=== PATIENT | male | born 1940 | race Caucasian/White ===

== ENCOUNTER 2016-04-28 11:01 | Inpatient (IN) | payer MEDICARE, OTHER ==
--- OUTSIDE RECORDS SUMMARY | 2016-04-28 12:22 | XMS REPORT | Continuity of Care Document ---
:1940 Author Organization [facility] ([facility]) Address [address] [place] [address] Phone [phone] Care Team Providers Name Role Phone Kirstin To Primary Care Provider [phone] Source Comments This disclosure is being made pursuant to the Care Everywhere program, applicable federal and state laws, and may not contain all informaitonavailable regarding this patient.[facility] ([facility]) Active Allergies and Adverse Reactions Allergen Noted Date Severity Reactions Comments Non-Med Tape Pruritus,Rash Hyaftup-Plf-Piy Reductase OTHER Joint pain, muscle pain Inhibitors Current Medications Prescription Sig. Disp. Refills Start Date End Date Status ACETAMINOPHEN/DP-HYDR Take 2 Tabs Active AM HCL (TYLENOL PM by mouth at EXTRA STRENGTH PO) bedtime. MULTIVITAMINS Take 1 Tab by Active (MULTI-VITAMIN PO) mouth daily. aspirin 325 mg tablet Take 325 mg Active by mouth daily. levothyroxine 75 mcg Take 75 mcg Active tablet by mouth daily. omega-3 fatty acids Take 2,000 mg Active 1,000 mg capsule by mouth daily. METHYLCELLULOSE Take 1 Tab by Active (FIBER THERAPY PO) mouth 2 times daily. metoPROLol succinate Take 25 mg by Active 25 mg XL tablet mouth daily ferrous sulfate 325 Take 65 mg by Active mg (65 mg iron) XR mouth daily capsule potassium chloride 10 Take 10 mEq Active mEq XR tablet by mouth daily gabapentin 300 mg Take 1 30 capsule 0 03/09/2015 Active capsule capsule (300 mg total) by mouth at bedtime omeprazole 20 mg Take 20 mg by Active enteric coated mouth 2 times capsule daily. VIT C/MORGAN Take by mouth Active AC/LUT/COPPER/ZNOX 2 times (PRESERVISION LUTEIN daily. PO) isosorbide Take 1 tablet 90 tablet 3 07/07/2015 Active mononitrate 60 mg CR (60 mg total) tablet by mouth every morning. cabergoline 0.5 mg Take 0.5 tab 20 tablet 3 07/08/2015 Active tablet on Sunday and 1 tab on Sunday. metFORMIN 500 mg XR Take 500 mg Active tablet by mouth every evening with dinner. montelukast 10 mg Take 10 mg by Active tablet mouth every evening. furosemide 20 mg Take 2 180 tablet 3 01/20/2016 Active tablet tablets (40 mg total) by mouth daily. rosuvastatin 5 mg Take 0.5 90 tablet 0 01/20/2016 Active tablet tablets (2.5 mg total) by mouth every 48 hours. lisinopril 5 mg Take 1 tablet 90 tablet 4 04/26/2016 Active tablet (5 mg total) by mouth daily. ezetimibe (ZETIA) 10 Take 1 tablet 90 tablet 0 01/20/2016 mg tablet (10 mg total) 7 by mouth daily. lisinopril 5 mg Take 1 tablet 90 tablet 0 01/20/2016 Discontinued tablet (5 mg total) 7 by mouth daily. 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 06/08/2006 Resolved Problems Problem Noted Date Resolved Date Undiagnosed cardiac murmurs 09/21/2003 10/13/2014 Most Recent Encounters Date Type Specialty Providers Description 04/26/2016 Office Visit [facility], Dx: Cardiomyopathy (Primary Dx) 02/16/2016 Office Visit [facility] Dx: Viral cardiomyopathy (Primary Dx) Immunizations Name Dates Previously Given Next Due Influenza 12/10/2014 Influenza, unspecified 12/10/2012,12/24/2008,12/25/2007,12/29/2006 Pneumococcal, unspecified 02/09/2013 Zoster, live (Zostavax) 03/12/2010 Social History Tobacco Use Types Packs/Day Years Used Date Current Some Day Smoker Cigars 25 Smokeless Tobacco: Never Used Tobacco Cessation:Ready to Quit: No Comments:Pt smokes about 6 cigars daily Alcohol Use Drinks/Week oz/Week Comments No Last Filed Vital Signs Vital Sign Reading Time Taken Blood Pressure 120/74 04/26/2016 10:20 AM THERAPY TECHNICIAN Pulse 80 04/26/2016 10:20 AM THERAPY TECHNICIAN Temperature 35.7 C (96.3 F) 01/20/2016 8:00 AM THERAPY TECHNICIAN Respiratory Rate 18 01/20/2016 8:00 AM THERAPY TECHNICIAN Height 1.778 m (5' 10") 04/26/2016 10:20 AM THERAPY TECHNICIAN Weight 124.739 kg (275 lb) 04/26/2016 10:20 AM THERAPY TECHNICIAN Body Mass Index 39.46 04/26/2016 10:20 AM THERAPY TECHNICIAN Oxygen Saturation 93% 01/20/2016 8:00 AM THERAPY TECHNICIAN Plan of Care Date Type Specialty Providers Description 08/30/2016 Appointment [facility], Chief Comp: Patient MD Reported Reason For [address] [place] [address] [phone] (Fax) Health Maintenance Due Date Last Done Comments Hepatitis B Vaccine (1 of 3 - 1940 Primary Series) Tdap Vaccine 1951 DIABETIC: Microalbumin 1960 Td Vaccine 1958 Colonoscopy 07/08/1992 Pneumococcal Vaccine (1 of 2 07/10/2007 - PCV13) DIABETIC: Hemoglobin A1C 12/19/2012 06/19/2012, 06/20/2011, 07/20/2009 Prostate Cancer Screening 06/24/2014 06/24/2013, Additional history exists 06/19/2012, 06/20/2011 DIABETIC: Foot Exam 05/18/2015 DIABETIC: Retinal Eye Exam 05/18/2015 Influenza Vaccine: Seasonal 10/11/2015 12/10/2014, Additional history exists (#1) 12/10/2012, 12/24/2008 DIABETIC: Cholesterol 01/17/2017 01/18/2016, Additional history exists 06/19/2012, 07/20/2009 Diabetic: Hdl 01/17/2017 01/18/2016, Additional history exists 06/19/2012, 07/20/2009 Diabetic: Ldl 01/17/2017 01/18/2016, Additional history exists 06/19/2012, 07/20/2009 DIABETIC: Triglycerides 01/17/2017 01/18/2016, Additional history exists 06/19/2012, 07/20/2009 Zoster Vaccine Completed 03/12/2010 Results from Last 3 Months Not on file
[2016-04-28 12:40] LABS: Hematocrit 39.7 % (42.0-52.0); Hemoglobin 13.7 gm/dL (13.5-18.0); Mean Cell Volume 92.5 fl (78-100); Mean Corpuscular Hemoglobin 31.9 pg (27-31); Mean Corpuscular Hgb Conc 34.5 g/dl (32-36); Mean Platelet Volume 10.5 fl (6.0-9.5); Neutrophil # 11.4 K/mm3 (1.3-6.0); Neutrophil % 81.3 % (42-75.0); Platelet Count 151 K/mm3 (150-450); Red Blood Count 4.29 M/mm3 (4.7-6.0); Red Cell Distribution Width 13.5 % (11.5-14.0); White Blood Count 14.1 K/mm3 (4.0-10.5)
[2016-04-28] MEDS ORDERED: ACETAMINOPHEN 500 MG TABLET PO ONE (12:45)
[2016-04-28 12:55] LABS: Urine Bilirubin Negative (NEGATIVE); Urine Blood Negative /ul (NEGATIVE); Urine Ketone Negative (NEGATIVE); Urine Nitrite Negative (NEGATIVE); Urine Protein Negative (NEGATIVE); Urine Urobilinogen Normal (NORMAL)
[2016-04-28 12:55] LABS: Albumin * 3.5 gm/dl (3.4-5.0); Anion Gap 13.9 mmol/L (6.8-13.8); BUN/Creatinine Ratio 13.3 (9.0-21.6); Ca. Corrected For Albumin 9.8 mg/dL (8.4-10.2); Calcium * 9.7 mg/dL (7.9-10.9); Carbon Dioxide 25.4 mmol/L (24-32.6); Potassium 4.3 mmol/L (3.4-4.6); Total Protein 7.9 gm/dL (6.2-8.2)
[2016-04-28 13:04] LABS: Urine Appearance Clear; Urine Color Dark Yellow
[2016-04-28 13:05] LABS: Urine Bacteria 2+; Urine RBC None Seen /hpf (0-5); Urine WBC 0-5 /hpf (0-5)
--- NOTE | 2016-04-28 13:28 | ERNOTE ---
Medical Problem HPI - Narrative Date of Service: 04/28/16 - General Chief Complaint: Flu Symptoms Time Seen by Provider: 04/28/16 12:11 Source: patient, family, RN notes reviewed, old records Exam Limitations: no limitations - Immun/Allergies/Home Medications Immunizations: IMMUNIZATION HX Immunizations Up to Date Yes History of Influenza Vaccine Yes Hx Pneumococcal Vaccination Yes Allergies/Adverse Reactions: Allergies adhesive Allergy (Mild, Verified 04/28/16 11:07) blisters, rash Irgjemw-Vuo-Cdb Reductase Inhibitor Adverse Reaction (Mild, Verified 01/17/16 16 :31) Muscle Pain Home Medications: HOME MEDICATIONS Omeprazole [Prilosec] 20 mg PO BID 02/03/13 [Last Taken Unknown] Levothyroxine Sodium [Levoxyl] 75 mcg PO DAILY 11/28/13 [Last Taken Unknown] metFORMIN HCL [Glucophage Xr] 500 mg PO DAILY 11/28/13 [Last Taken Unknown] Furosemide [Lasix] 20 mg PO BID 02/25/15 [Last Taken Unknown] Metoprolol Succinate [Toprol Xl] 25 mg PO DAILY 02/25/15 [Last Taken Unknown] Potassium Chloride [Klor-Con M10] 10 meq PO DAILY 02/25/15 [Last Taken Unknown] Gabapentin 300 mg PO BID 04/28/16 [Last Taken Unknown] Lisinopril 04/28/16 [Last Taken Unknown] Montelukast Sodium [Singulair] 10 mg PO DAILY 04/28/16 [Last Taken Unknown] - History of Present History Narrative: 75 y/o male to ED with by private car. He began running a fever and not feeling well yesterday. His only specific complaint is a sore throat, but he reports that it is mild. He had an echocardiogram 2 days ago and reports feeling fine that day. He denies sick contacts. He took Tylenol at 0600 and reports it made him feel worse. He denies nausea, vomiting, diarrhea and abdominal pain but reports only eating some toast since yesterday morning. He states his stomach is "upset." Date (Duration): 04/28/16 Review of Systems - Review of Systems Constitutional: Present: fever, chills, fatigue, malaise. Absent: recent illness EYE: Present: no symptoms reported ENT: Present: sore throat. Absent: ear pain, nose congestion, nasal drainage Respiratory: Absent: shortness of breath, cough, wheezing Cardiology: Absent: chest pain, palpitations, edema Gastrointestinal/Abdominal: Present: eating less, drinking less. Absent: nausea , vomiting, diarrhea, constipation, abdominal pain Genitourinary: Absent: frequency, dysuria, hematuria Musculoskeletal: Present: muscle pain, joint pain Skin: Absent: rash, lesions Neurological: Present: headache, tingling. Absent: dizziness/light-headedness, weakness, numbness Endocrine: Present: no symptoms reported Hematologic/Lymphatic: Absent: easy bruising, easy bleeding Psych: Present: no symptoms reported - Patient's Past Medical History Patient History - Medical: Diabetes Type 2, GERD, Hypothyroidism, Obesity Patient History - Cardiac/Respiratory: Hypertension, Hyperlipidemia Patient History - Cancer: No Hx of Cancer Patient History - Surgical Procedures: Appendectomy, Colon Resection, Colonoscopy, Coronary Bypass Surgery, Cardiac stent, EGD, T & A, Other - Cardioversion, pituitary tumor Patient History - Other: None - Social History Living Situations: spouse Abuse History: No History of abuse Psych History: No pertinent hx Smoking Status: Current some day smoker Have you smoked in the past 12 months: Yes Do you dip or chew tobacco: No Patient requests Smoking Cessation Consult: No Initiate information on Smoking Cessation: No Alcohol Use: rarely Drug Use: none - Immunizations Immunizations Up to Date: Yes Hx Pneumococcal Vaccination: Yes History of Influenza Vaccine: Yes Physical Exam - Physical Exam General Appearance: Present: wd/wn, alert, obese, other - appropriately dressed and groomed, appears to not feel well Eye Exam: Normal inspection: bilateral Ears, Nose, Throat: Present: hearing grossly normal, nasal congestion, normal pharynx. Absent: sinus pain/drainage, pharyngeal erythema, pharyngeal swelling Neck: Present: normal inspection, nontender, supple. Absent: lymphadenopathy (R ), lymphadenopathy (L) Respiratory: Present: no respiratory distress, normal breath sounds, no accessory muscle use, lungs clear Cardiovascular/Chest: Present: regular rate, rhythm, no murmur, normal peripheral pulses Gastrointestinal/Abdominal: Present: normal bowel sounds, nontender, soft, distended - obese Extremity Exam: Present: normal inspection, non-tender, no edema Neurological Exam: Present: alert, oriented, normal mood/affect, no motor/ sensory deficits Skin Exam: Present: normal color, warm/dry ED Progress - Results and Orders Patient's Lab Results:: I have reviewed the patient's lab results. - Vital Signs Patient's Vital Signs:: I have reviewed the patient's vital signs. Vital Signs: Vital Signs 04/28/16 11:12 Temperature 38.3 C H Pulse Rate 84 Respiratory 18 Rate Blood Pressure 109/57 O2 Sat by Pulse 94 Oximetry - X-Ray X-Ray #1 X-Ray: chest Interpretation: Reviewed by me X-ray Comments: Comparison: February 16, 2016 Technique: Chest PA Lateral * Findings: Reidentified cardiomegaly. Reidentified prior median sternotomy change. Chronic granulomatous changes also identified. There is prominence of the pulmonary arterial system, correlate for either central vascular engorgement or pulmonary arterial hypertension. No focal consolidative process. No pneumothorax. No effusions. Osseous structures demonstrate degenerative change. IMPRESSION: 1. Cardiomegaly and central vascular prominence. Findings can be seen in early CHF. These findings are stable from prior exam Electronically signed by Yahir Griffin M.D.. - CT/Ultrasound CT/Ultrasound Narrative: Technique: CT Head W/O Contrast * Findings: There is no acute intracranial hemorrhage, midline shift or mass effect detected. No hydrocephalus. Cisterns are unremarkable. Chronic atrophy and chronic microvascular ischemic disease change of the white matter reidentified No depressed calvarial fractures. Cyst versus polyp right maxillary sinus there is partial opacification of the sphenoid sinus. Mastoid air cells are well pneumatized. Impression: No acute intracranial process detected. Electronically signed by Yahir Griffin M.D.. - Progress/Reassessment Chief Complaint: Flu Symptoms Progress:: Improved Plan - Plan Plan: Patient reports feeling a lot better after fever has improved and IVF have been started. Patient had a brief episode of "not being able to get his words out" according to the . This had resolved by the time I went back into the room. A head CT was obtained and was normal. He apparently had a similar episode last fall when he was febrile and transferred to [facility]. The specific cause of that illness was not determined. Patient has elevated WBC and lactic acid of 2.9 with fever, chest xray is unremarkable. 2+ bacteria present in urine - infection source is likely prostatitis despite the patient having no urinary symptoms.Sepsis fluid bolus initiated. Dr. Ruggiero contacted for admission at [address] To (PCP) is unavailable. Will admit to acute and order IV Cipro. Patient in agreement with plan. Departure - Departure Clinical Impression: Prostatitis, acute Sepsis Qualifiers: Sepsis type: sepsis due to unspecified organism Qualified Code(s): A41.9 - Sepsis, unspecified organism Disposition: [facility] Condition: Fair
[2016-04-28] MEDS: NORMAL SALINE 1,000 ML IV SCH ×4 (14:00→17:52)
--- OUTSIDE RECORDS SUMMARY | 2016-04-28 14:49 | XMS REPORT | Continuity of Care Document ---
:1940 Author Organization [facility] ([facility]) Address [address] [place] [address] Phone [phone] Care Team Providers Name Role Phone Kirstin To Primary Care Provider [phone] Source Comments This disclosure is being made pursuant to the Care Everywhere program, applicable federal and state laws, and may not contain all informaitonavailable regarding this patient.[facility] ([facility]) Active Allergies and Adverse Reactions Allergen Noted Date Severity Reactions Comments Non-Med Tape Pruritus,Rash Eoghtmn-Nos-Dmi Reductase OTHER Joint pain, muscle pain Inhibitors [...] ASA due to GI bleeds 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 Overview: HINKLE-LAD, VG-OM1-OM3, VG-RPL with [...] Taken Blood Pressure 120/74 04/26/2016 10:20 AM DOCTOR OF PODIATRIC MEDICINE Pulse 80 04/26/2016 10:20 AM DOCTOR OF PODIATRIC MEDICINE Temperature 35.7 C (96.3 F) 01/20/2016 8:00 AM DOCTOR OF PODIATRIC MEDICINE Respiratory Rate 18 01/20/2016 8:00 AM DOCTOR OF PODIATRIC MEDICINE Height 1.778 m (5' 10") 04/26/2016 10:20 AM DOCTOR OF PODIATRIC MEDICINE Weight 124.739 kg (275 lb) 04/26/2016 10:20 AM DOCTOR OF PODIATRIC MEDICINE Body Mass Index 39.46 04/26/2016 10:20 AM DOCTOR OF PODIATRIC MEDICINE Oxygen Saturation 93% 01/20/2016 8:00 AM DOCTOR OF PODIATRIC MEDICINE Plan of Care Date Type Specialty Providers Description 08/30/2016 Appointment [facility], Chief Comp: Patient MD Reported Reason For [address] [place] [address] [phone] (Fax) Health Maintenance Due Date Last Done [...]
[2016-04-28] MEDS: CIPROFLOXACIN LACTATE/D5W 400 MG in Premix Bag 1 BAG IV SCH (15:42)
--- NOTE | 2016-04-28 16:48 | HP ---
Chief Complaint - Chief Complaint Date of Service: 04/28/16 Time of Service: 16:31 Chief Complaint: Fevers, neurologic disruption. History of Present Illness: Pt. is a patient of Dr. To, who has not been feeling well for a couple days , similar to what happened back in Jan 2016, felt antsy if sitting or lying down , Fevers, BROWN and a neurologic disruption that mad him have word finding issues. He denies dysuria, frequency, hesitancy, stiff neck, sore throat or sinus pain , N/V or diarrhea or abdominal pain, vision changes or cough. He did have some SOB, but he always has this. Work-up in the ER produced no definite findings other that possible urinary infection and given his issues with sitting or lying down I believe this is prostate related. He did have WBC of 14k, fever to 39 and Lactic acid of 2.9, all findings c/w sepsis. He received fluid boluses in the ER and was continued on the floor. When I saw him he states he was already feeling better. He reports history of CHF from when he was at [facility] in January, was started on lasix bid, but recent visit with Dr. Haque a few days ago, showed echo was wnl , disputing this dx. - Patient's Past Medical History Patient History - Medical: Diabetes Type 2, GERD, Hypothyroidism, Obesity Patient History - Cardiac/Respiratory: Hypertension, Hyperlipidemia Patient History - Cancer: No Hx of Cancer Patient History - Surgical Procedures: Appendectomy, Colon Resection, Colonoscopy, Coronary Bypass Surgery, Cardiac stent, EGD, T & A, Other Patient History - Other: None - Family History Mother Family History - Medical: , Diabetes Type 2 Family History - Cardiac/Respiratory: CVA/Stroke Sister Family History - Medical: , Diabetes Type 2 Insulin Dependent Father Family History - Medical: Family History - Cancer: Lung Brother Family History - Cardiac/Respiratory: Coronary Heart Disease - Social History Living Situations: home Abuse History: No History of abuse Psych History: No pertinent hx Smoking Status: Current some day smoker Have you smoked in the past 12 months: Yes Do you dip or chew tobacco: No Patient requests Smoking Cessation Consult: No Initiate information on Smoking Cessation: No Alcohol Use: rarely Drug Use: none - Immunizations Immunizations Up to Date: Yes Hx Pneumococcal Vaccination: Yes History of Influenza Vaccine: Yes Review Of Systems (GEN) - Review of Systems Generalized/Overall Review: Present: Weakness, Fever, Fatigue EENTM: Present: Other - Headache. Absent: Eye Pain, Double Vision, Nose Pain, Throat Pain Respiratory: Present: Shortness of Breath. Absent: Cough Cardiac: Absent: Chest Pain, Palpitations Abdominal: Present: No Symptoms Reported Genitourinary: Present: No Symptoms Reported Musculoskeletal: Present: No Symptoms Reported Neurological: Present: Headache, Other - memory issues - transient.. Absent: Numbness Skin: Present: No Symptoms Reported Endocrine: Present: No Symptoms Reported Immunizations: IMMUNIZATION HX Immunizations Up to Date Yes History of Influenza Vaccine Yes Hx Pneumococcal Vaccination Yes Allergies/Adverse Reactions: Allergies Allergy/AdvReac Type Severity Reaction Status Date / Time adhesive Allergy Mild blisters, Verified 04/28/16 15:43 rash [id number] Reductase AdvReac Mild Muscle Pain Verified 04/28/16 15:43 Inhibitor Home Medications: HOME MEDICATIONS Omeprazole [Prilosec] 20 mg PO BID 02/03/13 [Last Taken Unknown] Levothyroxine Sodium [Levoxyl] 75 mcg PO DAILY 11/28/13 [Last Taken Unknown] metFORMIN HCL [Glucophage Xr] 500 mg PO DAILY 11/28/13 [Last Taken Unknown] Furosemide [Lasix] 20 mg PO BID 02/25/15 [Last Taken Unknown] Metoprolol Succinate [Toprol Xl] 25 mg PO DAILY 02/25/15 [Last Taken Unknown] Potassium Chloride [Klor-Con M10] 10 meq PO DAILY 02/25/15 [Last Taken Unknown] Gabapentin 300 mg PO BID 04/28/16 [Last Taken Unknown] Lisinopril 04/28/16 [Last Taken Unknown] Montelukast Sodium [Singulair] 10 mg PO DAILY 04/28/16 [Last Taken Unknown] Exam - Exam Vital Signs: Vital Signs - Last Taken Temp 37.9 C H 04/28/16 15:30 Pulse 75 04/28/16 15:30 Resp 18 04/28/16 15:30 BP 100/48 04/28/16 15:30 Pulse Ox 94 04/28/16 15:30 Constitutional: Present: Alert, Oriented x3, Cooperative, No distress ENT Exam: Present: hearing grossly normal Eye Exam: bilateral eye: normal inspection, PERRL, EOMI, abnormal EOM Neck: Present: supple Respiratory: Present: no respiratory distress, no accessory muscle use, wheezing , expiration (prolonged) Cardiovascular/Chest: Present: regular rate, rhythm, systolic murmur Abdomen: Present: Normal bowel sounds, soft, nontender, nondistended, no rebound tenderness, no hepatospenomegaly, obese /Rectal: Present: Exam deferred Extremity: Present: no calf tenderness, lower extremity edema Skin Exam: Present: normal color Neurologic: Present: normal cerebellar test, normal mood/affect, oriented x 3 Appearance: Present: appropriate appearance, appropriate insight, neat Eye contact: Present: cooperative, good eye contact, normal speech Thoughts: Present: normal thought pattern, no apparent hallucination Diagnostic Studies: Abnormal Lab Results 04/28/16 04/28/16 Range/Units Unknown Unknown Lactic Acid, Venous 2.9 H* (0.4-2.0) mmol/L Ur Leukocyte Esterase 25 H (NEGATIVE) /ul Urine Bacteria 2+ H (NONE) Hyaline Casts 5-10 H (NONE) /LPF Laboratory Results WBC 14.1 K/mm3 (4.0-10.5) H 04/28/16 12:35 RBC 4.29 M/mm3 (4.7-6.0) L 04/28/16 12:35 Hgb 13.7 gm/dL (13.5-18.0) 04/28/16 12:35 Hct 39.7 % (42.0-52.0) L 04/28/16 12:35 MCV 92.5 fl (78-100) 04/28/16 12:35 MCH 31.9 pg (27-31) H 04/28/16 12:35 MCHC 34.5 g/dl (32-36) 04/28/16 12:35 RDW 13.5 % (11.5-14.0) 04/28/16 12:35 Plt Count 151 K/mm3 (150-450) 04/28/16 12:35 MPV 10.5 fl (6.0-9.5) H 04/28/16 12:35 Immature Gran % (Auto) 0.40 % (0.001-0.429) 04/28/16 12:35 Immature Gran # (Auto) 0.06 K/mm3 (0.000-0.0310) H 04/28/16 12:35 Neutrophils % 81.3 % (42-75.0) H 04/28/16 12:35 Neutrophils % (Manual) Cancelled 04/28/16 12:35 Band Neuts % (Manual) Cancelled 04/28/16 12:35 Lymphocytes % 7.0 % (20-51) L 04/28/16 12:35 Lymphocytes % (Manual) Cancelled 04/28/16 12:35 Monocytes % 11.1 % (0.0-9) H 04/28/16 12:35 Monocytes % (Manual) Cancelled 04/28/16 12:35 Eosinophils % 0.1 % (0.0-3.0) 04/28/16 12:35 Eosinophils % (Manual) Cancelled 04/28/16 12:35 Basophils % 0.1 % (0.0-1.0) 04/28/16 12:35 Basophils % (Manual) Cancelled 04/28/16 12:35 Nucleated RBC % 0.0 k/mm3 (0-1) 04/28/16 12:35 Immature Granulocytes Cancelled 04/28/16 12:35 Neutrophils # 11.4 K/mm3 (1.3-6.0) H 04/28/16 12:35 Neutrophils # (Manual) Cancelled 04/28/16 12:35 Lymphocytes # 1.0 k/mm3 (1.5-3.5) L 04/28/16 12:35 Lymphocytes # (Manual) Cancelled 04/28/16 12:35 Monocytes # 1.6 k/mm3 (0.0-1.0) H 04/28/16 12:35 Monocytes # (Manual) Cancelled 04/28/16 12:35 Eosinophils # 0.0 k/mm3 (0.0-0.7) 04/28/16 12:35 Eosinophils # (Manual) Cancelled 04/28/16 12:35 Basophils # (Manual) Cancelled 04/28/16 12:35 Absolute Basophils 0.0 k/mm3 (0.0-0.1) 04/28/16 12:35 Nucleated RBCs Cancelled 04/28/16 12:35 Differential Comment Cancelled 04/28/16 12:35 Hypersegmented Polys Cancelled 04/28/16 12:35 Atypic/Reactive Lymphs Cancelled 04/28/16 12:35 Other Cell Type Cancelled 04/28/16 12:35 Toxic Granulation Cancelled 04/28/16 12:35 Toxic Vacuolation Cancelled 04/28/16 12:35 Dohle Bodies Cancelled 04/28/16 12:35 Platelet Estimate Cancelled 04/28/16 12:35 Giant Platelets Cancelled 04/28/16 12:35 RBC Morphology Cancelled 04/28/16 12:35 Polychromasia Cancelled 04/28/16 12:35 Hypochromasia Cancelled 04/28/16 12:35 Poikilocytosis Cancelled 04/28/16 12:35 Basophilic Stippling Cancelled 04/28/16 12:35 Anisocytosis Cancelled 04/28/16 12:35 Microcytosis Cancelled 04/28/16 12:35 Macrocytosis Cancelled 04/28/16 12:35 Spherocytes Cancelled 04/28/16 12:35 Sickle Cells Cancelled 04/28/16 12:35 Target Cells Cancelled 04/28/16 12:35 Tear Drop Cells Cancelled 04/28/16 12:35 Ovalocytes Cancelled 04/28/16 12:35 Tafoya-Mcallen Bodies Cancelled 04/28/16 12:35 Elliptocytes Cancelled 04/28/16 12:35 Rouleaux Cancelled 04/28/16 12:35 Schistocytes Cancelled 04/28/16 12:35 Morphology Comment Cancelled 04/28/16 12:35 Sodium 134 mmol/L (132-142) 04/28/16 12:35 Plasma Sodium 135 mmol/L (130-142) 04/28/16 12:35 Potassium 4.3 mmol/L (3.4-4.6) 04/28/16 12:35 Chloride 99 mmol/L (97-106) 04/28/16 12:35 Carbon Dioxide 25.4 mmol/L (24-32.6) 04/28/16 12:35 Anion Gap 13.9 mmol/L (6.8-13.8) H 04/28/16 12:35 BUN 16 mg/dL (6-23) 04/28/16 12:35 Creatinine 1.20 mg/dL (0.4-1.4) 04/28/16 12:35 Est GFR (Non-Af Amer) 63 mL/min (60-130) 04/28/16 12:35 BUN/Creatinine Ratio 13.3 (9.0-21.6) 04/28/16 12:35 Random Glucose 181 mg/dL (70-110) H 04/28/16 12:35 Lactic Acid, Venous 2.9 mmol/L (0.4-2.0) H* 04/28/16 Unknown Calcium 9.7 mg/dL (7.9-10.9) 04/28/16 12:35 Calcium Adj for Albumin 9.8 mg/dL (8.4-10.2) 04/28/16 12:35 Total Bilirubin 1.0 mg/dL (0.0-1.1) 04/28/16 12:35 AST 40 U/L (0-48) 04/28/16 12:35 ALT 61 U/L (19-67) 04/28/16 12:35 Alkaline Phosphatase 101 U/L (50-170) 04/28/16 12:35 Total Protein 7.9 gm/dL (6.2-8.2) 04/28/16 12:35 Albumin 3.5 gm/dl (3.4-5.0) 04/28/16 12:35 Urine Color Dark yellow 04/28/16 Unknown Urine Appearance Clear 04/28/16 Unknown Urine pH 6.0 pH (5.0-7.0) 04/28/16 Unknown Ur Specific [place] 1.020 SP.GR. (1.005-1.030) 04/28/16 Unknown Urine Protein Negative mg/dL (NEGATIVE) 04/28/16 Unknown Urine Glucose (UA) Negative mg/dL (NEGATIVE) 04/28/16 Unknown Urine Ketones Negative mg/dL (NEGATIVE) 04/28/16 Unknown Urine Blood Negative /ul (NEGATIVE) 04/28/16 Unknown Urine Nitrate Negative (NEGATIVE) 04/28/16 Unknown Urine Bilirubin Negative mg/dl (NEGATIVE) 04/28/16 Unknown Urine Urobilinogen Normal EU/dl (NORMAL) 04/28/16 Unknown Ur Leukocyte Esterase 25 /ul (NEGATIVE) H 04/28/16 Unknown Urine RBC None seen /hpf (0-5) 04/28/16 Unknown Urine WBC 0-5 /hpf (0-5) 04/28/16 Unknown Ur Epithelial Cells Trace /hpf (0-5) 04/28/16 Unknown Urine Bacteria 2+ (NONE) H 04/28/16 Unknown Hyaline Casts 5-10 /LPF (NONE) H 04/28/16 Unknown Urine Culture Comments Culture to follow 04/28/16 Unknown Influenza Type A Ag Negative (NEGATIVE) 04/28/16 11:22 Influenza Type B Ag Negative (NEGATIVE) 04/28/16 11:22 Group A Strep Rapid Negative (NEGATIVE) 04/28/16 11:00 Assessment/Plan - Assessment/Plan (1) Neurologic abnormality Assessment: due to sepsis most likely cause. could be encephalitis given fever and sx. if sx persist consider MRI of the brain. Problem: Acute (2) Wheezing Assessment: will do some nebs while awake. might have some underlying asthma, which may be causing his intermittant afib. Problem: Acute (3) Prostatitis, acute Assessment: most likely source of infection given UA findings, sepsis findings on lab values and the restlessness that he reports. Problem: Acute (4) Sepsis Assessment: blood culture and urine culture pending. will do cipro as it has good coverage for prostate. will do fluids boluses and then reduce fluids to 126ml/hr until lactic acidosis is resolved or until the am which ever is later. Problem: Acute Qualifiers: Sepsis type: sepsis due to unspecified organism Qualified Code(s): A41.9 - Sepsis, unspecified organism (5) Atrial fibrillation, chronic Assessment: follow for now. no interventions needed at this time as he is in NSR. Problem: Acute (6) Diabetes Assessment: do SSI and consistent carb diet. continue home regimen. accu checks QAC and HS Problem: Acute Qualifiers: Diabetes mellitus type: type 2 Diabetes mellitus complication status: without complication Diabetes mellitus alf insulin use: without roasterman use Qualified Code(s): E11.9 - Type 2 diabetes mellitus without complications (7) Discharge planning issues Assessment: if he responds well to abx and labs are better in the am, the anticipate him going home soon on oral abx. Problem: Acute
[2016-04-28] MEDS ORDERED: ALBUTEROL SULFATE 2.5 MG/0.5 ML VIAL.NEB IH PRN (16:49)
[2016-04-28] MEDS: INSULIN REGULAR, HUMAN 100 UNITS/ML VIAL SC SCH ×2 (17:55→20:32)
[2016-04-28] MEDS: ACETAMINOPHEN 500 MG TABLET PO PRN (20:24)
[2016-04-28] MEDS: PANTOPRAZOLE SODIUM 20 MG TABLET.DR PO SCH (20:25)
[2016-04-28] MEDS: FUROSEMIDE 20 MG TABLET PO SCH (20:25)
[2016-04-28] MEDS: GABAPENTIN 300 MG CAPSULE PO SCH (20:25)
[2016-04-28] MEDS: NORMAL SALINE 1,000 ML IV PRN (20:28)
[2016-04-28] MEDS ORDERED: MONTELUKAST SODIUM 10 MG TABLET PO SCH (21:00)
[2016-04-29] MEDS: ACETAMINOPHEN 500 MG TABLET PO PRN ×2 (03:17→12:18)
[2016-04-29] MEDS: NORMAL SALINE 1,000 ML IV PRN (03:18)
[2016-04-29] MEDS: CIPROFLOXACIN LACTATE/D5W 400 MG in Premix Bag 1 BAG IV SCH (03:18)
[2016-04-29 06:22] LABS: Hematocrit 36.1 % (42.0-52.0); Hemoglobin 12.2 gm/dL (13.5-18.0); Mean Cell Volume 93.3 fl (78-100); Mean Corpuscular Hemoglobin 31.5 pg (27-31); Mean Corpuscular Hgb Conc 33.8 g/dl (32-36); Neutrophil # 7.6 K/mm3 (1.3-6.0); Neutrophil % 75.1 % (42-75.0); Platelet Count 126 K/mm3 (150-450); Red Blood Count 3.87 M/mm3 (4.7-6.0); Red Cell Distribution Width 13.7 % (11.5-14.0); White Blood Count 10.2 K/mm3 (4.0-10.5)
[2016-04-29 06:51] LABS: Anion Gap 13.5 mmol/L (6.8-13.8); BUN/Creatinine Ratio 14.9 (9.0-21.6); Bilirubin, Total 0.8 mg/dL (0.0-1.1); Ca. Corrected For Albumin 9.8 mg/dL (8.4-10.2); Calcium * 9.3 mg/dL (7.9-10.9); Carbon Dioxide 22.3 mmol/L (24-32.6); Potassium 3.8 mmol/L (3.4-4.6)
[2016-04-29] MEDS ORDERED: LEVOTHYROXINE SODIUM 75 MCG TABLET PO SCH (07:00)
[2016-04-29] MEDS: PANTOPRAZOLE SODIUM 20 MG TABLET.DR PO SCH (07:11)
[2016-04-29] MEDS: INSULIN REGULAR, HUMAN 100 UNITS/ML VIAL SC SCH (07:14)
--- NOTE | 2016-04-29 08:22 | PN ---
Progess Note - Interim Narrative: 04/29/16 08:19 Pt. feeling better this am. Does report word finding issues, but only when he has a fever, otherwise is feeling better and has no issues. 04/29/16 08:20 Lung exam is improved this am, no wheezing heard. He looks better. Urine culture still pending, but fevers are trending down. Prostatitis/sepsis - causing neurologic disruption: seems to be responding well and quickly. Will continue the cipro, anticipate possibly being able to send home this pm if he continues to do well and lactic acidosis is resolved.
[2016-04-29] MEDS ORDERED: POTASSIUM CHLORIDE 10 MEQ TABLET.SA PO SCH (09:00)
[2016-04-29] MEDS ORDERED: METOPROLOL SUCCINATE 25 MG TABLET.SA PO SCH (09:00)
[2016-04-29] MEDS: GABAPENTIN 300 MG CAPSULE PO SCH (09:13)
[2016-04-29] MEDS: FUROSEMIDE 20 MG TABLET PO SCH (09:14)
[2016-04-29 10:52] VITALS: BP 130/58
--- NOTE | 2016-04-29 11:57 | DS ---
(1) Neurologic abnormality Problem: Acute (2) Wheezing Problem: Acute (3) Prostatitis, acute Problem: Acute (4) Sepsis Problem: Acute Qualifiers: Sepsis type: sepsis due to unspecified organism Qualified Code(s): A41.9 - Sepsis, unspecified organism (5) Atrial fibrillation, chronic Problem: Acute (6) Diabetes Problem: Acute Qualifiers: Diabetes mellitus type: type 2 Diabetes mellitus complication status: without complication Diabetes mellitus intermodal truck driver insulin use: without intermodal truck driver use Qualified Code(s): E11.9 - Type 2 diabetes mellitus without complications (7) Discharge planning issues Problem: Acute Description of Stay: Pt. admitted for: Fever/neurologic changes - agnosia/UTI-prostatitis/sepsis. He was placed on IVF per sepsis protocol and his lactic acid levels normalized overnight. he was also put on iv cipro which seemed to help his sx and bring down his fevers. His only agnosia came last night when he became febrile, c/w the belief that this was related to his sepsis/infection. Because he responded well to the IV cipro and is doing better today, I believe he can be discharged home on oral cipro 500mg po bid x 14 days minimum and f/u outpt. with Dr. To his pcp later next week. He did have some wheezing on exam for which he was put on albuterol nebs while here, but were not continued on discharge. He was on SSI for his diabetes, but was resumed on his usual metformin at home at time of discharge. overall there were no changes to his medication regimen other than adding the cipro. Procedures Performed: none Discharge Disposition: Home self care Disposition: Home self-care Condition: Fair Discharge Activity: Activity as tolerated Discharge Diet: Consistent carbs Referrals: Kirstin To DO [Staff Physician] - One Week Prescriptions (Any new or edited meds): Ciprofloxacin HCl [Cipro] 500 mg PO BID #28 tab Complete Home Medications List: Complete Home Medication List: Omeprazole [Prilosec] 20 mg PO BID 02/03/13 Levothyroxine Sodium [Levoxyl] 75 mcg PO DAILY 11/28/13 metFORMIN HCL [Glucophage Xr] 500 mg PO DAILY 11/28/13 Furosemide [Lasix] 20 mg PO BID 02/25/15 Metoprolol Succinate [Toprol Xl] 25 mg PO DAILY 02/25/15 Potassium Chloride [Klor-Con M10] 10 meq PO DAILY 02/25/15 Gabapentin 300 mg PO BID 04/28/16 Lisinopril 04/28/16 Montelukast Sodium [Singulair] 10 mg PO DAILY 04/28/16 Acetaminophen [Tylenol] 500 mg PO Q6H PRN #0 tablet 04/29/16 Ciprofloxacin HCl [Cipro] 500 mg PO BID #28 tab 04/29/16
== END 2016-04-29 13:00 | disposition home or self-care (01) | DRG 872 ==
LOC: ER 11:01 → MS 14:44
PROVIDERS: ADMIT Family Medicine; ATTEND Family Medicine
DX: A41.9 Sepsis, unspecified organism (principal); N41.0 Acute prostatitis; N39.0 Urinary tract infection, site not specified; I48.2 Chronic atrial fibrillation; E11.9 Type 2 diabetes mellitus without complications; R48.1 Agnosia; E03.9 Hypothyroidism, unspecified; F17.210 Nicotine dependence, cigarettes, uncomplicated; Z95.1 Presence of aortocoronary bypass graft; Z95.5 Presence of coronary angioplasty implant and graft